=== PATIENT | male | born 1980 | race Caucasian/White ===

== ENCOUNTER → 2023-08-18 20:09 | Outpatient (REF) | payer BC, SELFPAY | LOC: MRI 3T 20:09 | PROVIDERS: ATTENDING PHYSICIAN Orthopaedic Surgery; FAMILY PHYSICIAN Family Medicine | DX: M23.92 Unspecified internal derangement of left knee (principal) | CPT/HCPCS: 73721 ==

== ENCOUNTER 2025-03-08 05:54 | Emergency (ER) | payer BC, SELFPAY ==
[2025-03-08 06:09] VITALS: BP 124/84
[2025-03-08 07:14] VITALS: BMI 25.1
[2025-03-08 07:20] VITALS: BP 128/65
[2025-03-08] MEDS: MORPHINE SULFATE 4 MG IV (07:23)
[2025-03-08] MEDS: ZOFRAN 4 MG IV (07:23)
[2025-03-08] MEDS: NSS 1000 IV (07:23)
[2025-03-08 07:43] LABS: Hematocrit 41.5 % (39.0-52.0); Hemoglobin 14.9 g/dL (13.0-18.0); Mean Corp Hgb Conc. 35.9 g/dL (33.0-37.0); Mean Corpuscular Volume 83.2 fL (80.0-94.0); Nucleated Red Blood Cells % 0 % (-); Platelet Count 273 10^3/uL (130-400); Red Cell Dist. Width 12.2 % (11.5-14.5)
[2025-03-08] MEDS: DILAUDID 1 MG IV ×2 (07:57→10:35)
[2025-03-08 07:59] LABS: ALT (SGPT) 28 U/L (0-50); AST (SGOT) 26 U/L (17-59); Albumin 5.4 g/dl (3.5-5.0); Alkaline Phosphatase 73 U/L (38-126); Blood Urea Nitrogen 15 mg/dl (9-20); Calcium 10.1 mg/dl (8.4-10.2); Carbon Dioxide 21 mmol/L (22-30); Chloride 107 mmol/L (98-107); Estimated Creatinine Clearance 99 ml/min; Glucose 127 mg/dl (70-99); Lipase 118 U/L (23-300); Potassium 3.9 mmol/L (3.5-5.1); Sodium 139 mmol/L (135-145); Total Protein 8.1 g/dl (6.3-8.2); eGFR > 60.00
[2025-03-08 08:00] VITALS: BP 136/84
[2025-03-08 08:10] LABS: Troponin I < 0.012 ng/ml
[2025-03-08 09:00] VITALS: BP 154/93
[2025-03-08 10:00] VITALS: BP 154/89
--- NOTE | 2025-03-08 12:18 | CON.GS ---
Addendum entered and electronically signed by Cornell Olsen MD 03/08/25 13:06:
Patient seen and examined.
Patient is a 44 yo M with a PMH notable for s/p laparoscopic appendectomy who presents to the ED with epigastric and RUQ abdominal pain radiating to his back. Symptoms began acutely yesterday evening awakening him from sleep. Noted oral intake of
blackburn for dinner. Has had prior attacks of RUQ abdominal pain dating back years. Previous attacks associated with fatty food intake. Has been following a strict low-fat diet in the interim with improvement in symptoms. Associated nausea and
vomiting with this particular episode. No fevers or chills. Denies any jaundice, pale stools, or tea colored urine.
Gen: NAD
Abd: soft, mild tenderness in RUQ, ND, non-peritoneal
Patient is a 44 yo M p/w symptomatic cholelithiasis versus acute cholecystitis
The natural history and pathophysiology of biliary and stone disease was discussed. Workup thus far including labs and ultrasound were reviewed. Given his recurrent attacks and persistent discomfort recommend cholecystectomy.
We discussed a laparoscopic cholecystectomy with possible cholangiogram. The procedure itself, as well as the risks, benefits, and alternatives was discussed. Specifically, we discussed the risk of bleeding, infection, injury to surrounding
structures (bowel, bile ducts), CBD injury, need from procedure. Typical postprocedural coverage including activity restrictions and the 10 to 20% risks of fluctuations in GI function was discussed. All questions answered.
At this point in time patient is declining surgery and would like to be discharged AMA. We discussed risks of worsening cholecystitis and potential complications and future treatment and management. He acknowledges understanding.
ED physician updated.
Original Note:
Consultation
-
Date/Time Consultation Performed: 114
Performing Provider: Shankar Anthony MD
Medical History
-
Chief Complaint: Abdominal pain
History of Present Illness:
Patient presented emergency department this morning due to complaint of abdominal pain that started overnight. Patient states he was awoken at 3:30 AM by 10/10 RUQ abdominal pain with radiation to the back. The pain has since extended to the
epigastrium as well. The pain has been constant since patient was walking, with the intensity of pain fluctuating between a minimum of 5/10 and maximum of 10/10. Patient states he has had 2�3 similar episodes over the past 2 years, with the pain
located in the RUQ and associated with consumption of fatty foods each time. Patient states he self manage prior episodes by limiting fatty foods from his diet, which seemed to prevent episodes from occurring. Patient states he ate blackburn last
night. Patient also has had nausea since last night, and he had 2 episodes of vomiting after presentation to the hospital. Patient denies fever, fatigue, chills, and changes to the color of his urine or stool.
Past Medical History
Past Medical History: None
Past Surgical History: Appendectomy
Social History
Tobacco: Non-Smoker
Alcohol: Occasional
Family History
Family History: Reviewed & Not Pertinent
Allergies / Home Medications
Allergy/AdvReac Type Severity Reaction Status Date / Time
No Known Allergies Allergy Unverified 03/08/25 06:09
�Medication �Instructions �Recorded �Confirmed �Type
No Meds [No Current Medications] 03/08/25 03/08/25 History
Review of Systems
-
A 10 point review of systems was completed, and was negative except as per HPI.
Physical Exam
Vital Signs
Temp Pulse Resp BP Pulse Ox
98.3 F 50 20 154/89 100
03/08/25 06:09 03/08/25 10:30 03/08/25 07:45 03/08/25 10:00 03/08/25 10:30
03/07/25 03/08/25 03/09/25
06:59 06:59 06:59
Actual Weight 81.6 kg
Body Mass Index (BMI) 25.1
Lab Results
03/08/25 07:30
03/08/25 07:30
WBC 10.1 10^3/uL (4.8-10.8) 03/08/25 07:
Hgb 14.9 g/dL (13.0-18.0) 03/08/25 07:
Hct 41.5 % (39.0-52.0) 03/08/25 07:
Plt Count 273 10^3/uL (130-400) 03/08/25 07:
Abs Immat Gran (auto) 0.1 10^3/uL (0-0.05) H 03/08/25 07:
Neutrophils % 71.6 % (42.2-75.2) 03/08/25 07:
Physical Exam
General: Well Developed, Well Nourished and No Apparent Distress
HEENT: Normocephalic and Anicteric
GI: Soft, Non Distended, Tender (TTP in RUQ; positive Arenas sign) and Other (No erythema; no ecchymosis; no rigidity; no guarding)
Neuro: Awake and AO x 3
Psych: Calm
Assessment / Plan
-
Assessment: Patient is a 44-year-old male with PSH of appendectomy who presents to the ED after being awoken at 3:30 AM by 10/10 intensity RUQ abdominal pain with radiation to the back, which is associated with nausea, vomiting, and fatty food
(blackburn) consumption last night. Physical exam is remarkable for RUQ tenderness and positive Arenas sign. CTAP and abdominal ultrasound show subtle gallbladder wall thickening/edema and cholelithiasis, respectively. Patient is AFVSS and without
leukocytosis. Based on the aforementioned clinical picture, acute cholecystitis versus symptomatic cholelithiasis is suspected.
Plan:
Surgical team discussed with patient recommendation for laparoscopic cholecystectomy, including the risks, benefits, and alternatives of surgical intervention
Patient is declining surgical intervention at this time, as he wants a couple days to think about it
Surgical team discussed the implications of deferring surgery at this time, including progression of cholecystitis/cholelithiasis and possible associated complications
Defer IV antibiotics for now from a surgical standpoint, as patient is declining surgery and indicates he wants to go home
--- NOTE | 2025-03-08 12:47 | ED.GENMED ---
History of Present Illness
General
Chief Complaint: Abdominal Pain
Source: patient
Exam Limitations: none
Time Seen by Provider: 03/08/25 06:42
Nursing documentation reviewed up to this point in time: agreed with
History of Present Illness
History of Present Illness:
Note:
CHIEF COMPLAINT(S)
Abdominal pain and vomiting.
HISTORY OF PRESENT ILLNESS
The patient is a 44-year-old male presenting with severe upper abdominal and back pain, accompanied by vomiting. He reports experiencing similar symptoms in the past, although this instance is more painful. The onset of symptoms was following the
consumption of rich foods the previous night. The patient has not previously sought medical attention for these symptoms. He took acetaminophen earlier in the day to alleviate the pain. He denies any history of gallbladder issues and does not have a
history of nausea and pain episodes severe enough to cause vomiting. The patient occasionally consumes alcohol but denies smoking or drug use.
ALLERGIES
No known allergies.
MEDICATIONS
The patient self-administered acetaminophen earlier today for pain relief.
REVIEW OF SYSTEMS
- Gastrointestinal: Vomiting present, severe abdominal pain.
- Musculoskeletal: Upper back pain.
PHYSICAL EXAM
General: Patient appears in discomfort but is alert.
Skin: Skin is warm and dry.
Head: Normocephalic, atraumatic.
Neck: Supple, trachea midline.
Eyes, Ears, Nose, Mouth and Throat: Oral mucosa moist.
Cardiovascular: Normal peripheral perfusion, no edema.
Respiratory: Breathing is non-labored.
Gastrointestinal: Noticeable tenderness upon palpation of the upper abdomen; nondistended.
Back: Normal range of motion and alignment, tenderness reported.
Musculoskeletal: Normal range of motion, normal strength.
Neurological: Alert and oriented to person, place, time, and situation. No focal neurological deficit observed.
Psychiatric: Cooperative, with an appropriate mood and affect.
PROBLEM LIST
Acute Problems:
- Severe upper abdominal and back pain
- Vomiting
PLAN
Administer antiemetic medication (ondansetron) for nausea and morphine for pain relief. Conduct an abdominal ultrasound to evaluate for potential gallbladder or other gastrointestinal issues. Initiate intravenous fluid therapy to maintain hydration.
DIFFERENTIAL DIAGNOSIS
The Differential Diagnosis includes, in no particular order and is not limited to:
1. Gallbladder disease (e.g., cholecystitis or gallstones)
2. Gastroesophageal reflux disease
3. Peptic ulcer disease
4. Pancreatitis
5. Liver disease
6. Gastritis
7. Gastroenteritis
8. Myocardial infarction
9. Renal colic
10. Musculoskeletal pain
CARE-UPDATE
03/08/25 - 14:01
Patient was evaluated by general surgery in the ED for epigastric pain possibly related to post-estitis. Surgery was offered, but the patient declined intervention and decided to leave against medical advice. Will monitor patients symptoms closely
and encourage follow-up if condition worsens.
Disposition:
SUMMARY OF ENCOUNTER
The patient, a 44-year-old male, presented to the emergency department with severe upper abdominal pain and back pain, accompanied by vomiting. The symptoms began following the consumption of rich foods the prior night. The patient took
acetaminophen earlier to manage the pain but continued to experience severe symptoms. An antiemetic (ondansetron) and morphine for pain relief were administered. An abdominal ultrasound was ordered to further evaluate potential gallbladder or
gastrointestinal issues, and intravenous fluids were initiated to maintain hydration.
DISPOSITION
The patient decided to leave against medical advice (AMA) without undergoing surgery which was discussed as part of the management plan after the evaluation by general surgery.
ASSESSMENT
Possible gastrointestinal issue, such as gallbladder disease or pancreatitis, requiring further imaging and surgical evaluation.
EMERGENCY TREATMENTS ADMINISTERED
Ondansetron and morphine provided in the emergency department.
MANAGEMENT OF THE PATIENTS CARE WAS DISCUSSED WITH
General Surgery was consulted for epigastric pain evaluation.
PLAN
The plan included administration of antiemetics for nausea and morphine for pain control. An abdominal ultrasound was conducted to assess for gallbladder issues or other gastrointestinal concerns. Intravenous fluids were administered to ensure
patient hydration. The patient was informed to follow up with general surgery and return if symptoms worsened.
FOLLOW-UP INSTRUCTIONS
The patient was advised to follow up with general surgery and to return to the emergency department if his condition worsens.
MEDICATION RECONCILIATION
Acetaminophen was taken by the patient prior to arriving at the emergency department. Ondansetron and morphine were administered during the ED visit.
MEDICAL DECISION MAKING
- Number and Complexity of Problems Addressed: Acute symptoms of severe upper abdominal and back pain, vomiting; potential causes include gallbladder disease, pancreatitis, gastritis.
- Data:
Category 1:
- Abdominal ultrasound ordered to evaluate potential causes of gastrointestinal symptoms.
Category 3:
- Discussion of management and potential surgical intervention with general surgery.
- Risk: Consideration of surgical intervention; patient chose to leave AMA indicating potential serious underlying condition unresolved.
DIAGNOSIS
- Abdominal pain, unspecified (R10.9)
- Vomiting, unspecified (R11.10)
Past History
Past History
ED Past Medical History: None
ED Past Surgical History: None
Social History
Tobacco: Non-smoker
Alcohol: None
Personal:
Living: with family
Phy Exam
Physical Exam
Physical Exam:
.
Course
Orders/Labs/Results
Orders:
Orders
03/08/25 06:47
Electrocardiogram (*1) Stat
Reason for Study: Abdominal Pain
Cardiac Monitoring- Treatment ONCE
EKG- Treatment ONCE
IV Insert/Care/Rem.- Treatment PRN
Morphine Sulfate 4 mg IV NOW STA
Ondansetron Injectable [Zofran] 4 mg IV NOW STA
Pulse Ox/cont/shift [RESP] Stat
Quantity: 1
US Abdomen Complete/Upper Urgent
Comment:
Reason For Exam: ruq pain, n/v
03/08/25 06:48
0.9% Sodium Chloride 1000 ml [Nss] 1,000 ml IV BOLUS
03/08/25 07:30
Alcohol Urgent
Complete Blood Count/With Diff Urgent
Comprehensive Metabolic Panel Urgent
Lipase Urgent
Troponin I Urgent
03/08/25 07:54
HYDROmorphone [Dilaudid] 1 mg IV NOW STA
03/08/25 08:06
Add On- LAB Urgent
Tests Added?: alcohol
03/08/25 10:31
HYDROmorphone [Dilaudid] 1 mg IV NOW STA
03/08/25 10:32
CT Abd/pelvis W Iv Cont Urgent
Comment:
Reason For Exam: epigastric pain, n/v
Abnormal Lab Results
03/08/25
07:30
Abs Immat Gran (auto) 0.1 H 10^3/uL
(0-0.05)
Absolute Neuts (auto) 7.3 H 10^3/uL
(1.4-6.5)
Immature Gran % 0.6 H %
(0-0.5)
Carbon Dioxide 21 L mmol/L
(22-30)
Glucose 127 H mg/dl
(70-99)
Albumin 5.4 H g/dl
(3.5-5.0)
03/08/25 07:30
03/08/25 07:30
Vital Signs
Initial and Last Documented VS:
Initial Vital Signs
Temp Pulse Resp BP Pulse Ox
98.3 F 60 24 124/84 100
03/08/25 06:09 03/08/25 06:09 03/08/25 06:09 03/08/25 06:09 03/08/25 06:09
Last Documented Vital Signs
Temp Pulse Resp BP Pulse Ox
98.3 F 50 20 154/89 100
03/08/25 06:09 03/08/25 10:30 03/08/25 07:45 03/08/25 10:00 03/08/25 12:47
*Pulse Oximetry
SaO2: 100
Oxygen Mode of Delivery: Room air
Patient hypoxic: no
*Critical Care Note
Total Time (30-74mins, 75-104mins- exclusive of procedures): Not Applicable
ED Attending Note
-
Portions of this chart may have been created with voice recognition software.� Occasional wrong word or��sound alike� substitutions may have occurred due to the inherent limitations of voice recognition software.
Discharge Plan
Departure
Patient Disposition: Against Medical Advice
Date of Disposition: 03/08/25
Time of Disposition: 12:46
Patient with high blood pressure during this ER visit?: Yes
Condition: Good
Discharge Problem:
Biliary colic
Instructions: Gallstones - ED (DC), BLOOD PRESSURE
Prescriptions:
No Action
No Current Medications
0
Referrals:
Rusty Khan DO [Family Provider, Family Practice]
Cornell Olsen MD [Active, Surgical] - Call in 1-3 days for appt
Interventions
Interventions:
*Risk Screen - Suicide Last Done: 03/08/25 06:09
*General Assessment Last Done: 03/08/25 07:14
*Neglect/Abuse Screening Last Done: 03/08/25 06:09
*ED- Fall Risk Assessment Last Done: 03/08/25 07:14
*ED COVID-19 Vaccine History Last Done: 03/08/25 07:14
*Nursing Disposition Last Done: 03/08/25 12:58
ID-Zkdywv-Ccsdkmcobu Assessment Last Done: 03/08/25 07:14
Discharge Date and Time
Discharge Date/Time: 03/08/25 12:59
Print Language: [place]
== END 2025-03-08 12:59 | disposition left against medical advice (07) ==
LOC: EMR 05:54
PROVIDERS: EMERGENCY PHYSICIAN Emergency Medicine; FAMILY PHYSICIAN Family Medicine
DX: K80.70 Calculus of gallbladder and bile duct without cholecystitis without obstruction (principal); R11.10 Vomiting, unspecified; M54.6 Pain in thoracic spine; Z90.49 Acquired absence of other specified parts of digestive tract
CPT/HCPCS: 96374; 96375; 96376; 96361; 99284; 74177; 76700; 80053; 82077; 83690; 84484; 85025; 93005; Q9967

== ENCOUNTER 2025-04-12 06:14 | Day surgery (SDC) | payer BC, SELFPAY ==
[2025-04-12] VITALS (7 sets, daily range): BP systolic 132–146; BP diastolic 77–92; BMI 25.9
[2025-04-12] MEDS: TYLENOL 1000 MG PO (11:50)
[2025-04-12] MEDS: NORMOSOL-R/PLASMALYTE-A 1000 IV (11:52)
== END 2025-04-12 16:43 | disposition home or self-care (01) ==
LOC: SDS 06:14
PROVIDERS: ATTENDING PHYSICIAN Surgery
DX: K80.00 Calculus of gallbladder with acute cholecystitis without obstruction (principal); K31.A0 Gastric intestinal metaplasia, unspecified; K80.10 Calculus of gallbladder with chronic cholecystitis without obstruction
CPT/HCPCS: 47562; 88304; A4300